=== PATIENT | female | born 1955 | race Caucasian/White ===

== ENCOUNTER 2018-12-26 08:15 | Emergency (ER) | payer MEDICAID ==
[~2018-12-26] VITALS: Ht 160 cm; Wt 62.7 kg
[2018-12-26 08:16] VITALS: BP 126/73
--- NOTE | 2018-12-26 09:40 | NUR ---
PT TO ROOM FROM LOBBY
== END 2018-12-26 10:09 | disposition home or self-care (01) ==
LOC: ED 09:51
DX: S83.242A Other tear of medial meniscus, current injury, left knee, initial encounter (principal); M25.562 Pain in left knee; G89.29 Other chronic pain; X58.XXXA Exposure to other specified factors, initial encounter; Y93.89 Activity, other specified; Y92.89 Other specified places as the place of occurrence of the external cause; Y99.8 Other external cause status
CPT/HCPCS: 99281

== ENCOUNTER 2019-01-30 11:20 | Day surgery (SDC) | payer MEDICAID ==
[2019-01-29 13:35] LABS: ALANINE AMINOTRANSFERASE 15 U/L (12-78); ALBUMIN 3.8 g/dL (3.4-5.0); ANION GAP 10 mmol/L (5-15); CALCIUM 9.1 mg/dL (8.5-10.1); CHLORIDE 107 mmol/L (98-107); CREATININE 0.58 mg/dL (0.55-1.02)
[2019-01-29 13:37] LABS: ALKALINE PHOSPHATASE 116 U/L (45-117); BILIRUBIN,TOTAL 0.3 mg/dL (0.2-1.0); TOTAL PROTEIN 7.7 g/dL (6.4-8.2)
[~2019-01-30] VITALS: Ht 160 cm; Wt 59.0 kg
[~2019-01-30 11:20] MED LIST: AMLO2.5T2 PO; ESCI10TA10 PO; GABA300C10 PO; HYDR-3245 PO; LOSA100T14 PO
[2019-01-30] MEDS ORDERED: LACTATED RINGERS 1,000 ML IV SCH (11:40)
[2019-01-30 11:52] VITALS: BP 149/90
[2019-01-30] MEDS ORDERED: LIDOCAINE-MPF 1%, 2ML INFIL ONE (12:00)
[2019-01-30] MEDS ORDERED: FENTANYL PF 100 MCG/2ML ONE (13:48)
[2019-01-30] MEDS ORDERED: MIDAZOLAM 1 MG/ML, 2ML ONE (13:48)
[2019-01-30] MEDS ORDERED: ROPIvacaine/PF 0.5%, 30 ML ONE (14:17)
[2019-01-30] MEDS ORDERED: ONDANSETRON 2MG/ML, 2ML ONE (14:29)
[2019-01-30] MEDS ORDERED: PROPOFOL 10 MG/ML, 20ML ONE (14:29)
[2019-01-30] MEDS ORDERED: CEFAZOLIN 1,000 MG ONE (14:29)
[2019-01-30] MEDS ORDERED: DEXAMETHASONE 4 MG/ML, 1ML ONE (14:29)
[2019-01-30] MEDS ORDERED: FENTANYL PF 100 MCG/2ML IV PRN (15:00)
[2019-01-30] MEDS ORDERED: KETOROLAC 30 MG/1 ML IV PRN (15:00)
[2019-01-30] MEDS ORDERED: ALBUTEROL SULFATE 2.5 MG/3 ML NPPB PRN (15:00)
[2019-01-30] MEDS ORDERED: MEPERIDINE/PF 25MG/0.5ML IVPush PRN (15:00)
[2019-01-30] MEDS ORDERED: OXYcodone 5 MG/5 ML ORAL.SOL UDC PO PRN (15:00)
[2019-01-30] MEDS ORDERED: PROMETHAZINE 25 MG/ML, 1ML IV PRN (15:00)
[2019-01-30] MEDS ORDERED: HYDROmorphone 2 MG/ML, 1ML IVPush PRN (15:00)
[2019-01-30] MEDS ORDERED: ACETAMINOPHEN 325 MG TABLET PO PRN (15:00)
[2019-01-30] MEDS ORDERED: LABETALOL 5MG/ML, 20ML IV PRN (15:00)
[2019-01-30] MEDS ORDERED: DIAZEPAM 5 MG/ML, 2ML IVPush PRN (15:00)
[2019-01-30] MEDS ORDERED: hydrALAzine 20 MG/ML, 1ML IV PRN (15:00)
[2019-01-30] MEDS ORDERED: OXYcodone 5 MG/5 ML ORAL.SOL UDC ONE (15:12)
== END 2019-01-30 16:35 | disposition home or self-care (01) ==
LOC: OUT 11:20
PROVIDERS: ATTEND Orthopaedic Surgery
DX: S83.242A Other tear of medial meniscus, current injury, left knee, initial encounter (principal); I10 Essential (primary) hypertension; J44.9 Chronic obstructive pulmonary disease, unspecified; Z79.899 Other long term (current) drug therapy; Z87.891 Personal history of nicotine dependence; X58.XXXA Exposure to other specified factors, initial encounter; Y93.89 Activity, other specified; Y92.89 Other specified places as the place of occurrence of the external cause; Y99.8 Other external cause status
CPT/HCPCS: 29881; 36415; 80053; 93005; J0690; J1100; J2250; J2405; J2704; J2795; J3010; J7120

== ENCOUNTER 2020-08-06 13:57 | Inpatient (IN) | payer MEDICAID ==
[~2020-08-06] VITALS: Ht 157.5 cm; Wt 65.2 kg
[~2020-08-06 13:57] MED LIST changes: -HYDR-3245 PO; +HYDR1TAB53 PO
--- NOTE | 2020-08-06 14:26 | NUR ---
X-RAY TECH AT BEDSIDE.
--- NOTE | 2020-08-06 14:27 | NUR ---
PATIENT WALKED BACK FROM TRIAGE WITH CHIEF C/O FEVER. PER PATIENT SHE WOULD LIKE "A COVID TEST." PATIENT REPORTS FEVER LAST NIGHT, AND SAYS SHE "FEELS OFF." PATIENT REPORTS SOB, DENIES COUGH, DENIES N/V/D. PATIENT DENIES SICK CONTACTS. AWILDA LADD, CALL LIGHT WITHIN REACH. Addendum: 08/06/20 at 1432 by RONALDO PATIENT ALSO REPORTS FEELING DIZZY.
[2020-08-06 14:50] LABS: BASOPHILS % (AUTO) 1 % (0-1); EOSINOPHILS % (AUTO) 2 % (1-7); LYMPHOCYTES % (AUTO) 18 % (22-44); MEAN CORPUSCULAR HEMOGLOBIN 29.7 pg (27.0-34.8); MEAN CORPUSCULAR HGB CONC 33.5 g/dL (32.4-35.8); MEAN PLATELET VOLUME 7.8 fL (7.4-10.4); MONOCYTES % (AUTO) 6 % (2-9); NEUTROPHILS % (AUTO) 74 % (42-75); PLATELET COUNT 198 x10^3/uL (130-400); RED BLOOD COUNT 3.44 x10^6/uL (3.82-5.3); RED CELL DISTRIBUTION WIDTH 13.5 % (9.6-15.2)
[2020-08-06 14:52] LABS: MD NO
[2020-08-06 14:57] LABS: ALBUMIN 3.5 g/dL (3.4-5.0); ANION GAP 8 mmol/L (5-15); CALCIUM 8.3 mg/dL (8.5-10.1); CHLORIDE 107 mmol/L (98-107); CREATININE 1.05 mg/dL (0.55-1.02)
[2020-08-06 15:00] LABS: TROPONIN I < 0.015 ng/mL (0.000-0.045)
[2020-08-06] MEDS ORDERED: CEFTRIAXONE PMX 1GM/50ML 50 ML ONE (16:07)
--- NOTE | 2020-08-06 16:20 | NUR ---
DR. MADERA AT BEDSIDE FOR ADMISSION EVALUATION.
[2020-08-06] MEDS ORDERED: AZITHROMYCIN 500 MG in SODIUM CHLORIDE 0.9% 250 ML IV ONE (16:30)
[2020-08-06] MEDS ORDERED: CEFTRIAXONE PMX 1GM/50ML 50 ML IVPB ONE (16:30)
--- NOTE | 2020-08-06 16:47 | NUR ---
WAITING FOR LAB TO DRAW SECOND SET OF BLOOD CULTURES BEFORE HANGING ABX.
[2020-08-06 16:54] LABS: ALANINE AMINOTRANSFERASE 16 U/L (12-78); ALBUMIN 3.5 g/dL (3.4-5.0); ANION GAP 9 mmol/L (5-15); CALCIUM 8.3 mg/dL (8.5-10.1); CHLORIDE 108 mmol/L (98-107)
[2020-08-06 16:57] LABS: ALKALINE PHOSPHATASE 125 U/L (45-117); BILIRUBIN,TOTAL 0.4 mg/dL (0.2-1.0); TOTAL PROTEIN 7.2 g/dL (6.4-8.2)
[2020-08-06] MEDS ORDERED: POLYETHYLENE GLYCOL 17 GM PACKET PO PRN (17:00)
[2020-08-06] MEDS ORDERED: DOCUSATE 100 MG CAPSULE PO PRN (17:00)
[2020-08-06] MEDS ORDERED: ONDANSETRON 2MG/ML, 2ML IVPush PRN (17:00)
[2020-08-06] MEDS ORDERED: ACETAMINOPHEN 325 MG TABLET PO PRN (17:00)
[2020-08-06] MEDS ORDERED: GUAIFENESIN/DM 200-20MG, 10ML UDC PO PRN (17:00)
--- NOTE | 2020-08-06 17:00 | NUR ---
CHIEF SUPPLY CHAIN OFFICER AT BEDSIDE.
[2020-08-06 17:04] LABS: BASOPHILS % (AUTO) 0 % (0-1); EOSINOPHILS % (AUTO) 2 % (1-7); LYMPHOCYTES % (AUTO) 14 % (22-44); MEAN CORPUSCULAR HGB CONC 32.9 g/dL (32.4-35.8); MEAN PLATELET VOLUME 8.2 fL (7.4-10.4); MONOCYTES % (AUTO) 6 % (2-9); NEUTROPHILS % (AUTO) 79 % (42-75); PLATELET COUNT 188 x10^3/uL (130-400); RED BLOOD COUNT 3.61 x10^6/uL (3.82-5.3); RED CELL DISTRIBUTION WIDTH 13.9 % (9.6-15.2)
[2020-08-06 17:07] LABS: MD NO
--- NOTE | 2020-08-06 17:29 | NUR ---
PATIENT TO CT SCAN.
[2020-08-06] MEDS: CEFTRIAXONE PMX 1GM/50ML 50 ML IV SCH (17:30)
[2020-08-06] MEDS: AZITHROMYCIN 500 MG in SODIUM CHLORIDE 0.9% 250 ML IV SCH (17:30)
[2020-08-06] MEDS ORDERED: ENOXAPARIN 40 MG/0.4 ML ONE (17:49)
[2020-08-06] MEDS ORDERED: OMNIPAQUE 350 MG/ML, 100ML BOTTLE ONE (17:57)
[2020-08-06] MEDS ORDERED: DEXAMETHASONE 4 MG/ML, 1ML ONE (17:59)
[2020-08-06] MEDS: ENOXAPARIN 40 MG/0.4 ML SQ SCH (18:02)
[2020-08-06] MEDS: SODIUM CHLORIDE 0.9% 1,000 ML IV SCH (18:02)
[2020-08-06] MEDS: DEXAMETHASONE 4 MG/ML, 1ML IVPush SCH (18:02)
--- NOTE | 2020-08-06 18:03 | NUR ---
PATIENT MEDICATED PER eMAR, WARM BLANKET PROVIDED, BSC IN ROOM FOR PATIENT TO USE, NADN, VSS, CALL LIGHT WITHIN REACH. WAITING FOR ROOM ASSIGNMENT UPSTAIRS.
[2020-08-06 21:44] VITALS: BP 131/76
--- NOTE | 2020-08-06 21:49 | NUR ---
Pt sitting up, eating a sandwhich, no acute distress. VSS. Report called to Karina BRASWELL. Pt to unit.
[2020-08-06] MEDS ORDERED: PROM25TA10 PO (22:16)
[2020-08-07] MEDS: SODIUM CHLORIDE 0.9% 1,000 ML IV SCH ×2 (01:09→08:46)
[2020-08-07 01:41] VITALS: BP 102/67
[2020-08-07 05:31] LABS: BASOPHILS % (AUTO) 0 % (0-1); EOSINOPHILS % (AUTO) 0 % (1-7); LYMPHOCYTES % (AUTO) 10 % (22-44); MEAN CORPUSCULAR HEMOGLOBIN 29.7 pg (27.0-34.8); MEAN CORPUSCULAR HGB CONC 33.9 g/dL (32.4-35.8); MEAN PLATELET VOLUME 8.2 fL (7.4-10.4); MONOCYTES % (AUTO) 4 % (2-9); NEUTROPHILS % (AUTO) 87 % (42-75); PLATELET COUNT 162 x10^3/uL (130-400); RED CELL DISTRIBUTION WIDTH 13.7 % (9.6-15.2)
[2020-08-07 05:38] LABS: MD NO
[2020-08-07 05:45] LABS: ALBUMIN 2.8 g/dL (3.4-5.0); ANION GAP 7 mmol/L (5-15); CALCIUM 8.3 mg/dL (8.5-10.1); CHLORIDE 114 mmol/L (98-107)
[2020-08-07 05:47] LABS: D-DIMER 0.5 ug/mlFEU (0.00-0.52)
[2020-08-07 05:58] LABS: ALANINE AMINOTRANSFERASE 14 U/L (12-78); ALKALINE PHOSPHATASE 111 U/L (45-117); BILIRUBIN,TOTAL 0.3 mg/dL (0.2-1.0); CREATININE 0.52 mg/dL (0.55-1.02); TOTAL PROTEIN 6.5 g/dL (6.4-8.2)
[2020-08-07 07:22] VITALS: BP 102/63
[2020-08-07] MEDS: ESCITALOPRAM 10MG TABLET PO SCH (08:22)
[2020-08-07] MEDS: CHOLECALCIFEROL 1,000 UNIT TABLET PO SCH (08:22)
[2020-08-07] MEDS: AMLODIPINE 2.5 MG TABLET PO SCH ×3 (08:22→23:29)
[2020-08-07] MEDS: ZINC SULFATE 220 MG CAPSULE PO SCH (08:22)
[2020-08-07] MEDS: THIAMINE 100MG TABLET PO SCH (08:22)
[2020-08-07] MEDS: LOSARTAN 100 MG TAB PO SCH (08:22)
[2020-08-07] MEDS: GABAPENTIN 300 MG CAPSULE PO SCH (08:22)
[2020-08-07] MEDS: DEXAMETHASONE 4 MG/ML, 1ML IVPush SCH (08:23)
[2020-08-07] MEDS: ASCORBIC ACID 500 MG TABLET PO SCH ×2 (08:38→17:16)
[2020-08-07] MEDS: HYDROcodone/APAP 10/325 MG TABLET PO PRN ×3 (08:38→22:31)
[2020-08-07 13:17] VITALS: BP 100/59
[2020-08-07] MEDS: CEFTRIAXONE PMX 1GM/50ML 50 ML IV SCH (17:16)
[2020-08-07] MEDS: ENOXAPARIN 40 MG/0.4 ML SQ SCH (17:17)
[2020-08-07] MEDS: AZITHROMYCIN 500 MG in SODIUM CHLORIDE 0.9% 250 ML IV SCH (17:55)
[2020-08-07 19:25] VITALS: BP 104/62
[2020-08-08 01:56] VITALS: BP 111/72
[2020-08-08 05:44] LABS: BASOPHILS % (AUTO) 0 % (0-1); EOSINOPHILS % (AUTO) 0 % (1-7); LYMPHOCYTES % (AUTO) 20 % (22-44); MEAN CORPUSCULAR HEMOGLOBIN 29.7 pg (27.0-34.8); MEAN CORPUSCULAR HGB CONC 33.5 g/dL (32.4-35.8); MONOCYTES % (AUTO) 5 % (2-9); NEUTROPHILS % (AUTO) 75 % (42-75); PLATELET COUNT 217 x10^3/uL (130-400); RED BLOOD COUNT 3.43 x10^6/uL (3.82-5.3); RED CELL DISTRIBUTION WIDTH 13.8 % (9.6-15.2)
[2020-08-08 05:45] LABS: MD NO
[2020-08-08 05:56] LABS: CALCIUM 8.9 mg/dL (8.5-10.1); CHLORIDE 116 mmol/L (98-107)
[2020-08-08 06:07] LABS: ALANINE AMINOTRANSFERASE 11 U/L (12-78); ALKALINE PHOSPHATASE 96 U/L (45-117); ANION GAP 8 mmol/L (5-15); BILIRUBIN,TOTAL 0.2 mg/dL (0.2-1.0); CREATININE 0.49 mg/dL (0.55-1.02); TOTAL PROTEIN 6.6 g/dL (6.4-8.2)
[2020-08-08 06:15] LABS: HCT (SEDRATE) 30.4 % (34.6-47.8)
[2020-08-08 07:20] VITALS: BP 131/97
[2020-08-08] MEDS: ZINC SULFATE 220 MG CAPSULE PO SCH (07:22)
[2020-08-08] MEDS: DEXAMETHASONE 4 MG/ML, 1ML IVPush SCH (07:22)
[2020-08-08] MEDS: CHOLECALCIFEROL 1,000 UNIT TABLET PO SCH (07:23)
[2020-08-08] MEDS: GABAPENTIN 300 MG CAPSULE PO SCH (07:23)
[2020-08-08] MEDS: ESCITALOPRAM 10MG TABLET PO SCH (07:23)
[2020-08-08] MEDS: ASCORBIC ACID 500 MG TABLET PO SCH ×2 (07:23→16:24)
[2020-08-08] MEDS: HYDROcodone/APAP 10/325 MG TABLET PO PRN ×2 (07:23→13:59)
[2020-08-08] MEDS: LOSARTAN 100 MG TAB PO SCH (07:23)
[2020-08-08] MEDS: AMLODIPINE 2.5 MG TABLET PO SCH (07:24)
[2020-08-08] MEDS: THIAMINE 100MG TABLET PO SCH (07:59)
[2020-08-08 12:56] VITALS: BP 120/67
[2020-08-08] MEDS: CEFTRIAXONE PMX 1GM/50ML 50 ML IV SCH (16:24)
[2020-08-08] MEDS: ENOXAPARIN 40 MG/0.4 ML SQ SCH (16:25)
[2020-08-08] MEDS: AZITHROMYCIN 500 MG in SODIUM CHLORIDE 0.9% 250 ML IV SCH (17:24)
[2020-08-08 19:38] VITALS: BP 140/77
[2020-08-09 00:21] VITALS: BP 140/68
[2020-08-09] MEDS: HYDROcodone/APAP 10/325 MG TABLET PO PRN ×2 (00:24→08:32)
[2020-08-09 04:45] LABS: BASOPHILS % (AUTO) 0 % (0-1); EOSINOPHILS % (AUTO) 0 % (1-7); LYMPHOCYTES % (AUTO) 37 % (22-44); MEAN CORPUSCULAR HEMOGLOBIN 29.7 pg (27.0-34.8); MEAN CORPUSCULAR HGB CONC 33.4 g/dL (32.4-35.8); MEAN PLATELET VOLUME 7.8 fL (7.4-10.4); MONOCYTES % (AUTO) 6 % (2-9); NEUTROPHILS % (AUTO) 56 % (42-75); PLATELET COUNT 200 x10^3/uL (130-400); RED BLOOD COUNT 3.18 x10^6/uL (3.82-5.3); RED CELL DISTRIBUTION WIDTH 13.7 % (9.6-15.2)
[2020-08-09 04:50] LABS: MD NO
[2020-08-09 04:55] LABS: ALBUMIN 2.8 g/dL (3.4-5.0); ANION GAP 5 mmol/L (5-15); CALCIUM 8.2 mg/dL (8.5-10.1); CHLORIDE 112 mmol/L (98-107)
[2020-08-09 05:04] LABS: ALANINE AMINOTRANSFERASE 13 U/L (12-78); ALKALINE PHOSPHATASE 84 U/L (45-117); BILIRUBIN,TOTAL 0.2 mg/dL (0.2-1.0); CREATININE 0.43 mg/dL (0.55-1.02); TOTAL PROTEIN 6.1 g/dL (6.4-8.2)
[2020-08-09] MEDS: LOSARTAN 100 MG TAB PO SCH (08:32)
[2020-08-09] MEDS: ZINC SULFATE 220 MG CAPSULE PO SCH (08:33)
[2020-08-09] MEDS: CHOLECALCIFEROL 1,000 UNIT TABLET PO SCH (08:33)
[2020-08-09] MEDS: ASCORBIC ACID 500 MG TABLET PO SCH (08:34)
[2020-08-09] MEDS: GABAPENTIN 300 MG CAPSULE PO SCH (08:35)
[2020-08-09] MEDS: ESCITALOPRAM 10MG TABLET PO SCH (08:35)
[2020-08-09] MEDS: DEXAMETHASONE 4 MG/ML, 1ML IVPush SCH (08:35)
[2020-08-09] MEDS: AMLODIPINE 2.5 MG TABLET PO SCH (08:35)
[2020-08-09] MEDS: THIAMINE 100MG TABLET PO SCH (08:35)
[2020-08-09 09:29] VITALS: BP 158/68
[2020-08-09] MEDS ORDERED: AMOX500T PO (11:08)
[2020-08-09] MEDS ORDERED: AZIT250T PO (11:08)
[2020-08-09] MEDS ORDERED: PRED20TA PO (11:08)
== END 2020-08-09 12:58 | disposition home or self-care (01) | DRG 720 ==
LOC: ED 16:01 → EDIP 16:02 → SUATTDRO 16:12 → ED 17:06 → 3N 21:44
PROVIDERS: ADMIT Internal Medicine; ATTEND Family Medicine
DX: A41.9 Sepsis, unspecified organism (principal); D64.9 Anemia, unspecified; G62.9 Polyneuropathy, unspecified; I10 Essential (primary) hypertension; J18.9 Pneumonia, unspecified organism; J96.01 Acute respiratory failure with hypoxia; J15.6 Pneumonia due to other Gram-negative bacteria; Z20.822 Contact with and (suspected) exposure to COVID-19; Z72.0 Tobacco use; Z71.6 Tobacco abuse counseling
CPT/HCPCS: 36415; 71045; 71275; 80048; 80053; 82040; 82728; 83605; 83615; 84145; 84443; 84484; 85025; 85379; 85384; 85651; 86140; 87040; 93005; 96365; 96367; 99285; G0378; J0456; J0696; J1100; J1650; Q9967; J7030; J7050; U0003

== ENCOUNTER 2020-10-22 06:19 | Emergency (ER) | payer MEDICAID ==
[~2020-10-22] VITALS: Ht 160 cm; Wt 63.6 kg
[~2020-10-22 06:19] MED LIST changes: +AMOX500T PO; +AZIT250T PO; +PRED20TA PO; +PROM25TA10 PO
[2020-10-22] MEDS ORDERED: MORPHINE SULFATE 4 MG/ML, 1ML IVPush ONE ×2 (06:30→08:00)
[2020-10-22] MEDS ORDERED: MORPHINE SULFATE 4 MG/ML, 1ML ONE ×2 (06:30→07:41)
--- NOTE | 2020-10-22 06:38 | NUR ---
BIB EMS FOR GLF AT HOME. PT STATES WALKING TO BED FROM RESTROOM AND WHEN SITTING DOWN SHE MISSED THE BED AND HIT HER TAIL BONE. PT HAVING RIGHT SIDED BACK AND GROIN PAIN. 100 MCG FENTYNAL AND 4MG ZOFROM GIVEN IV PER EMS. ERP SEEN FOR EVAL, PT MEDICATED FOR PAIN PER EMAR, PT TO XRAY AT THIS TIME
--- NOTE | 2020-10-22 06:55 | NUR ---
REPORT GIVEN TO FRENCH NICKERSON
--- NOTE | 2020-10-22 06:55 | NUR ---
Report from FRENCH Vora. Pt in imaging.
[2020-10-22 08:05] VITALS: BP 133/56
== END 2020-10-22 08:41 | disposition home or self-care (01) ==
LOC: ED 07:00
DX: S22.081A Stable burst fracture of T11-T12 vertebra, initial encounter for closed fracture (principal); I10 Essential (primary) hypertension; W19.XXXA Unspecified fall, initial encounter; Y93.89 Activity, other specified; Y92.89 Other specified places as the place of occurrence of the external cause; Y99.8 Other external cause status
CPT/HCPCS: 72110; 72190; 96374; 96376; 99284; J2270